=== PATIENT | female | born 1955 | race African-American/Black ===

== ENCOUNTER 2018-07-14 10:27 | Emergency (ER) | payer OTHER ==
[~2018-07-14] VITALS: Ht 170.2 cm; Wt 74.8 kg
[2018-07-14] MEDS ORDERED: SODIUM CHLORIDE 0.9% 1000ML 1,000 ML IV SCH (11:00)
--- NOTE | 2018-07-14 11:01 | NUR ---
GIVEN CUP FOR UA.
[2018-07-14] MEDS ORDERED: SODIUM CHLORIDE 0.9% 1000ML 1,000 ML ONE (11:07)
--- NOTE | 2018-07-14 11:32 | NUR ---
REPORT TO CATARINO
--- NOTE | 2018-07-14 11:39 | NUR ---
assumed care of pt
--- NOTE | 2018-07-14 11:58 | Diagnostic Imaging Report ---
EXAMINATION: Chest PA and lateral views INDICATION: Pain. COMPARISON: None FINDINGS: TUBES and LINES: None. LUNGS: Lungs are well inflated. Lungs are clear. There is mild prominence of the central pulmonary vasculature, consistent with pulmonary venous congestion. PLEURA: No pleural effusion or pneumothorax. HEART AND MEDIASTINUM: Cardiac size is moderately enlarged. BONES AND SOFT TISSUES: No acute osseous lesion. Soft tissues are unremarkable. UPPER ABDOMEN: No free air under the diaphragm. IMPRESSION: Cardiomegaly and mild pulmonary venous congestion. Signed by: Dr. Umm Archer M.D. on 07/14/2018 11:55 AM
[2018-07-14 13:20] VITALS: BP 111/73
== END 2018-07-14 13:18 | disposition home or self-care (01) ==
LOC: FSED 10:27
DX: R19.7 Diarrhea, unspecified (principal); R10.9 Unspecified abdominal pain; E86.1 Hypovolemia; K52.9 Noninfective gastroenteritis and colitis, unspecified; M81.0 Age-related osteoporosis without current pathological fracture
CPT/HCPCS: 71046; 80048; 80076; 81003; 82553; 83880; 84484; 85025; 93005; 99284; J7030